=== PATIENT | male | born 2000 | race Caucasian/White ===

== ENCOUNTER 2024-02-19 15:58 | Emergency (ER) | payer BC, SELFPAY ==
[2024-02-19 15:58] VITALS: BP 148/92; PULSE 102; RESP 20; TEMP 36.8; O2SAT 97; BMI 21.6
--- NOTE | 2024-02-19 16:01 | ECG_ITS ---
APPROVED REPORT Exam: Resting ECG HR:100 bpm ECG Measurements Heart Rate 100 AXES KS 129 P 63 QRSd 91 QRS 81 QT 315 T 57 QTc 372 Conclusion SINUS TACHYCARDIA Electronically signed by : MARKIE DE LUNA, 02/19/2024 22:35:16
[2024-02-19 16:05] VITALS: BP 148/92; PULSE 88; O2SAT 96
--- NOTE | 2024-02-19 16:13 | XR_ITS ---
PROCEDURE INFORMATION: Exam: XR Right Shoulder Exam date and time: 02/19/2024 4:47 PM Age: 23 years old Clinical indication: Injury or trauma; Fall; Blunt trauma (contusions or hematomas); Shoulder; Right; Additional info: Fall, R shoulder pain TECHNIQUE: Imaging protocol: Radiologic exam of the right shoulder. Views: 2 or more views. COMPARISON: CT CERVICAL SPINE WO CON 02/19/2024 4:39 PM FINDINGS: Bones/joints: Normal. No acute fracture identified. Soft tissues: Normal. IMPRESSION: No acute findings.
--- NOTE | 2024-02-19 16:13 | CT_ITS ---
PROCEDURE INFORMATION: Exam: CT Cervical Spine Without Contrast Exam date and time: 02/19/2024 4:39 PM Age: 23 years old Clinical indication: Injury or trauma; Fall; Blunt trauma; Additional info: Fall, on eliquis TECHNIQUE: Imaging protocol: Computed tomography of the cervical spine without contrast. Radiation optimization: All CT scans at this facility use at least one of these dose optimization techniques: automated exposure control; mA and/or kV adjustment per patient size (includes targeted exams where dose is matched to clinical indication); or iterative reconstruction. COMPARISON: CT HEAD/BRAIN WO CON 02/19/2024 4:37 PM FINDINGS: Bones: No acute fracture. Normal alignment. No significant disc bulge or herniation. No severe spinal canal stenosis. No significant neural foraminal narrowing. Old ununited avulsion fracture off of the tip of the T1 noted. Lungs: Lung apices are normal. Soft tissues: Unremarkable. IMPRESSION: No acute findings.
--- NOTE | 2024-02-19 16:13 | XR_ITS ---
PROCEDURE INFORMATION: Exam: XR Right Hip Exam date and time: 02/19/2024 4:45 PM Age: 23 years old Clinical indication: Injury or trauma; Fall; Blunt trauma (contusions or hematomas); Right; Hip; Additional info: Fall, R hip and pelvis pain TECHNIQUE: Imaging protocol: Radiologic exam of the right hip. Views: 2 or 3 views hip with pelvis when performed. COMPARISON: CT LUMBAR SPINE WO CON 02/19/2024 4:45 PM FINDINGS: Bones/joints: Unremarkable. No acute fracture. Soft tissues: Unremarkable. IMPRESSION: No acute findings.
--- NOTE | 2024-02-19 16:13 | XR_ITS ---
PROCEDURE INFORMATION: Exam: XR Right Humerus Exam date and time: 02/19/2024 4:48 PM Age: 23 years old Clinical indication: Injury or trauma; Fall; Blunt trauma (contusions or hematomas); Arm, upper; Right; Additional info: Right humerus pain after fall TECHNIQUE: Imaging protocol: Radiologic exam of the right humerus. Views: 2 or more views. COMPARISON: CR Shoulder R 02/19/2024 4:47 PM FINDINGS: Bones/joints: Normal. No acute fracture identified. Soft tissues: Normal. IMPRESSION: No acute findings.
--- NOTE | 2024-02-19 16:13 | XR_ITS ---
PROCEDURE INFORMATION: Exam: XR Right Elbow Exam date and time: 02/19/2024 4:49 PM Age: 23 years old Clinical indication: Injury or trauma; Fall; Blunt trauma (contusions or hematomas); Elbow; Right; Additional info: Fall, right humerus pain TECHNIQUE: Imaging protocol: Radiologic exam of the right elbow. Views: 3 or more views. COMPARISON: CR Humerus R 02/19/2024 4:48 PM FINDINGS: Bones/joints: Normal. No acute fracture identified. Soft tissues: Normal. IMPRESSION: No acute findings.
--- NOTE | 2024-02-19 16:13 | CT_ITS ---
PROCEDURE INFORMATION: Exam: CT Head Without Contrast Exam date and time: 02/19/2024 4:37 PM Age: 23 years old Clinical indication: Injury or trauma; Fall; Blunt trauma (contusions or hematomas); Additional info: Fall on eliquis TECHNIQUE: Imaging protocol: Computed tomography of the head without contrast. Radiation optimization: All CT scans at this facility use at least one of these dose optimization techniques: automated exposure control; mA and/or kV adjustment per patient size (includes targeted exams where dose is matched to clinical indication); or iterative reconstruction. COMPARISON: No relevant prior studies available. FINDINGS: Brain: Normal. No hemorrhage. Unremarkable white matter. No mass effect. Cerebral ventricles: No ventriculomegaly. Paranasal sinuses: Visualized sinuses are unremarkable. No fluid levels. Mastoid air cells: Visualized mastoid air cells are well aerated. Bones: Unremarkable. No acute fracture. Soft tissues: Unremarkable. IMPRESSION: No acute intracranial abnormality.
--- NOTE | 2024-02-19 16:16 | CT_ITS ---
PROCEDURE INFORMATION: Exam: CTA Chest With Contrast Exam date and time: 02/19/2024 4:49 PM Age: 23 years old Clinical indication: Injury or trauma; Fall; Blunt trauma (contusions or hematomas); Additional info: Fall 30 feet, substernal and R chest wall pain TECHNIQUE: Imaging protocol: Computed tomographic angiography of the chest with contrast. Exam focused on the arteries. 3D rendering (Not supervised by radiologist): MIP and/or 3D reconstructed images were created by the technologist. Radiation optimization: All CT scans at this facility use at least one of these dose optimization techniques: automated exposure control; mA and/or kV adjustment per patient size (includes targeted exams where dose is matched to clinical indication); or iterative reconstruction. Contrast material: ISOVUE; Contrast volume: 100 ml; Contrast route: INTRAVENOUS (IV); COMPARISON: CT ANGIO ABDOMEN PELVIS 02/19/2024 4:49 PM FINDINGS: Pulmonary arteries: Normal. No pulmonary emboli. Aorta: Unremarkable. No aortic aneurysm. No aortic dissection. Lungs: Unremarkable. No consolidation. No masses. Pleural spaces: Unremarkable. No pneumothorax. No pleural effusion. Heart: Unremarkable. No cardiomegaly. No pericardial effusion. Lymph nodes: Unremarkable. No enlarged lymph nodes. Bones/joints: Unremarkable. No acute fracture. Soft tissues: Unremarkable. IMPRESSION: No acute findings.
--- NOTE | 2024-02-19 16:16 | XR_ITS ---
PROCEDURE INFORMATION: Exam: XR Right Forearm Exam date and time: 02/19/2024 4:50 PM Age: 23 years old Clinical indication: Injury or trauma; Fall; Blunt trauma (contusions or hematomas); Arm, lower; Right; Additional info: Fall, R forearm pain TECHNIQUE: Imaging protocol: Radiologic exam of the right forearm. Views: 2 views. COMPARISON: CR Elbow R 02/19/2024 4:49 PM FINDINGS: Bones/joints: Normal. No acute fracture identified. Soft tissues: Normal. IMPRESSION: No acute findings.
--- NOTE | 2024-02-19 16:16 | CT_ITS ---
PROCEDURE INFORMATION: Exam: CTA Abdomen and Pelvis With Contrast Exam date and time: 02/19/2024 4:49 PM Age: 23 years old Clinical indication: Injury or trauma; Fall; Blunt trauma; Pelvic area; Right; Additional info: Fall 30 feet, substernal and R chest wall pain TECHNIQUE: Imaging protocol: Computed tomographic angiography of the abdomen and pelvis with contrast. Exam focused on the arteries. 3D rendering (Not supervised by radiologist): MIP and/or 3D reconstructed images were created by the technologist. Radiation optimization: All CT scans at this facility use at least one of these dose optimization techniques: automated exposure control; mA and/or kV adjustment per patient size (includes targeted exams where dose is matched to clinical indication); or iterative reconstruction. Contrast material: ISOVUE; Contrast volume: 100 ml; Contrast route: INTRAVENOUS (IV); COMPARISON: CR Hip R 02/19/2024 4:45 PM FINDINGS: Esophagus: Incidental fairly diffuse mild esophageal wall thickening suggesting possible esophagitis. Aorta: No aortic aneurysm. No aortic dissection. Celiac trunk and mesenteric arteries: No occlusion or significant stenosis. Renal arteries: No occlusion or significant stenosis. Right iliac arteries: No occlusion or significant stenosis. Left iliac arteries: No occlusion or significant stenosis. Liver: No mass. Gallbladder and biliary ducts: Unremarkable. No calcified stones. No ductal dilation. Pancreas: Unremarkable. No mass. No ductal dilation. Spleen: Unremarkable. No splenomegaly. Adrenal glands: Unremarkable. No mass. Kidneys and ureters: Unremarkable. No solid mass. No hydronephrosis. Stomach and bowel: Unremarkable. No obstruction. No mucosal thickening. Appendix: No evidence of appendicitis. Intraperitoneal space: Unremarkable. No free air. No significant fluid collection. Lymph nodes: Unremarkable. No enlarged lymph nodes. Urinary bladder: Unremarkable. No mass. Reproductive: Unremarkable as visualized. Bones/joints: No acute fracture. Soft tissues: Unremarkable. IMPRESSION: 1. No acute abnormality of the abdomen and pelvis. 2. Diffuse esophageal wall thickening suggesting potential esophagitis.
--- NOTE | 2024-02-19 16:16 | CT_ITS ---
PROCEDURE INFORMATION: Exam: CT Lumbar Spine Without Contrast Exam date and time: 02/19/2024 4:45 PM Age: 23 years old Clinical indication: Injury or trauma; Fall; Blunt trauma (contusions or hematomas); Additional info: Fall 30 feet, left midline and paraspinal pain TECHNIQUE: Imaging protocol: Computed tomography of the lumbar spine without contrast. Radiation optimization: All CT scans at this facility use at least one of these dose optimization techniques: automated exposure control; mA and/or kV adjustment per patient size (includes targeted exams where dose is matched to clinical indication); or iterative reconstruction. COMPARISON: CT THORACIC SPINE WO CON 02/19/2024 4:41 PM FINDINGS: Bones/joints: No acute fracture. Normal alignment. No significant disc bulge or herniation. No severe spinal canal stenosis. No significant neural foraminal narrowing. Soft tissues: Unremarkable. IMPRESSION: No acute findings.
--- NOTE | 2024-02-19 16:16 | CT_ITS ---
PROCEDURE INFORMATION: Exam: CT Thoracic Spine Without Contrast Exam date and time: 02/19/2024 4:41 PM Age: 23 years old Clinical indication: Injury or trauma; Fall; Blunt trauma (contusions or hematomas); Additional info: Fall 30 feet, substernal and R chest wall pain TECHNIQUE: Imaging protocol: Computed tomography of the thoracic spine without contrast. Radiation optimization: All CT scans at this facility use at least one of these dose optimization techniques: automated exposure control; mA and/or kV adjustment per patient size (includes targeted exams where dose is matched to clinical indication); or iterative reconstruction. COMPARISON: CT CERVICAL SPINE WO CON 02/19/2024 4:39 PM FINDINGS: Bones/joints: No acute fracture. Normal alignment. No significant disc bulge or herniation. No severe spinal canal stenosis. No significant neural foraminal narrowing. Old ununited avulsion fractures off of the tips of the T1 and T2 spinous processes. Soft tissues: Unremarkable. IMPRESSION: 1. No acute abnormality. 2. Old ununited T1 and T2 spinous process fractures.
[2024-02-19] MEDS: ONDANSETRON 4MG/2ML VIAL 4 MG IV (16:21)
[2024-02-19] MEDS: ACETAMINOPHEN 1,000MG/100ML VIAL 1000 MG IV (16:21)
[2024-02-19] MEDS: KETOROLAC 30MG/ML VIAL 15 MG IV (16:22)
[2024-02-19] MEDS: FENTANYL 100MCG/2ML VIAL 50 MCG IV (16:22)
--- NOTE | 2024-02-19 16:24 | HMH.EDGENADL ---
Discharge Plan Disposition Patient Disposition: Home, Self-Care Prescriptions Prescriptions: New methocarbamol 750 mg tablet 1,500 mg PO TID 5 Days Qty: 30 0RF Referrals Follow up/Referrals: Provider,Referral, MD [Primary Care Provider] - See instructions Activity Restrictions/Add. Instructions Additional Instructions/Restrictions: Call your family doctor to establish care for this visit to the emergency department and schedule follow-up within 48 hours to ensure improvement. If you have any worsening of your condition or any other concerning signs or symptoms, return to the emergency department or your primary care doctor for further evaluation. Take Tylenol 1000 mg every 6 hours (4 times daily) and ibuprofen 400 mg every 6 hours (4 times daily) as needed with food and water to prevent GI upset and kidney damage. Robaxin sent to pharmacy. Robaxin can cause you to feel drowsy. Do not drive, operate heavy machinery, or engage in any activity that may make you tired, fall asleep, and because harm to yourself or others while taking this medication. Clinical Impressions Clinical Impression: Arm pain, right, Right-sided chest wall pain, Acute pain of right hip, Acute lumbosacral myofascial strain, Fall, Neurapraxia of right upper extremity Discharge ED Provider: Cristino Carey General Adult HPI General Chief complaint: Fall Stated complaint: Chest Pain Time Seen by Provider: 02/19/24 16:13 Mode of Arrival: Ambulatory Source of Information: Patient and Spouse Limitations: No Limitations Description of Symptoms (Recalled from ER Triage Doc. by RN): pt fell 30-50 feet from antenna tower last night around 0, per pt landed on feet then to knee and mainly hurts right shoulder but today pain has gradually gotten wrose and he hurts all over. pt walked into ER and got self into bed, ER staff applied c colloar upon triage and ER MD deemed patient not a trauma alert. pt is nervous and anxious upon triage and vitals reflect that but otherwise WNL History of Present Illness HPI narrative: Please note that above description of symptoms, in this electronic medical record under categorization of recalled from ER triage doctor by RN are reflective of an initial nursing assessment, however, is not reflective of my full history and physical exam that was personally taken and clarified. Consequentially, this preceding description of symptoms, which may include the patient's categorized chief complaint in the EMR, do not reflect my personal clinical impression, and the ultimate description of history of present illness and patient stated complaints should be deferred to this section of the note. Unless stated otherwise or congruent with this section of the note, additional signs, symptoms, or incongruence should be interpreted as inaccurate with my clinical impression. Related Data Previous Rx's Medication Instructions Recorded methocarbamol 750 mg tablet 1,500 mg (2 x 750 mg) PO TID 5 02/19/24 days #30 tabs Allergies Allergy/AdvReac Type Severity Reaction Status Date / Time No Known Allergies Allergy Verified 02/19/24 16:17 [facility] Disclaimer: The information contained in this section may have been updated after the patient was seen, as this information can be updated by other users. Social History Smoking Status: Never smoker alcohol intake: never current occupational status: employed Travel in the last 8 weeks: None ROS Obtained: Yes All systems reviewed & no additional complaints except as documented Physical Exam General General appearance: alert and in distress (Mild distress secondary to pain) Head Head exam: atraumatic and normocephalic Eye Eye exam: Present normal appearance, PERRL and EOMI ENT ENT exam: Present normal exam and normal oropharynx Neck Neck exam: Present normal inspection, full ROM, trachea midline and tenderness (Paraspinal muscles on the right. No midline spinal tenderness. C-collar placed given complaint of pain radiating down right arm) Chest Chest inspection: Present symmetric chest wall rise and tenderness (Right inferolateral chest wall pain) Respiratory Respiratory exam: Present normal lung sounds bilaterally; Absent respiratory distress, wheezes, stridor, accessory muscle use or prolonged expiratory phase Cardiovascular Cardiovascular exam: Present normal rhythm, tachycardia and other (Pulses equal symmetric in upper and lower extremities) Abdominal Exam Abdominal exam: Present soft and tenderness; Absent distention or pulsatile mass Abdominal tenderness: Present RUQ and mild Extremities Exam Extremities exam: Present tenderness (Supraspinatus tenderness causing radiation through right upper extremity. Tenderness at right shoulder and right humerus. No outward signs of injury or deformity); Absent edema Back Exam Back exam: Present paraspinal tenderness (Left-sided lumbar) and sciatic notch tenderness (L); Absent sciatic notch tenderness (R) Neurological Exam Neurological exam: Present alert, oriented X3, CN II-XII intact, normal gait and motor sensory deficit (Has subjective sensory deficit C6 distribution right upper extremity, described as less sensation, as well as numb ) Skin Skin exam: Present warm and dry; Absent diaphoresis or erythema Medical Decision Making Medical Records Medical records reviewed: Yes I reviewed the patient's medical records. Gigi Inquiry Pt receiving controlled substance: No Gigi was queried for this patient: No Vital Signs: 02/19/24 15:58 02/19/24 16:05 02/19/24 17:30 Temperature 98.2 F Temperature Source Oral Pulse Rate 88 89 Pulse Rate [Right Radial] 102 H Respiratory Rate 20 16 Blood Pressure 148/92 H 136/80 Blood Pressure [Right Arm] 148/92 H Blood Pressure Mean [Right Arm] 110 02 Sat by Pulse Oximetry 97 96 95 Oxygen Delivery Method Room Air Room Air Room Air Orders (Tests/Meds): ED MEDICATIONS Discontinued Medications Generic Name Dose Route Start Last Admin Trade Name Freq PRN Reason Stop Dose Admin Acetaminophen 1,000 mg 02/19/24 16:13 02/19/24 16:21 Acetaminophen 1,000mg/100ml Vial IV 02/19/24 16:14 1,000 mg ONCE ONE Administration Fentanyl Citrate 50 mcg 02/19/24 16:13 02/19/24 16:22 Fentanyl 100mcg/2ml Vial IV 02/19/24 16:14 50 mcg ONCE ONE Administration Iopamidol 100 ml 02/19/24 16:48 02/19/24 16:50 Iopamidol-370 (76%);100ml Bottle IV 02/19/24 16:49 100 ml ONCE ONE Administration Ketorolac Tromethamine 15 mg 02/19/24 16:13 02/19/24 16:22 Ketorolac 30mg/Ml Vial IV 02/19/24 16:14 15 mg ONCE ONE Administration Methocarbamol 1,500 mg 02/19/24 17:13 02/19/24 17:27 Methocarbamol 500mg Tablet PO 02/19/24 17:14 1,500 mg ONCE ONE Administration Ondansetron HCl 4 mg 02/19/24 16:17 02/19/24 16:21 Ondansetron 4mg/2ml Vial IV 02/19/24 16:18 4 mg ONCE ONE Administration Sodium Chloride 50 ml 02/19/24 16:48 02/19/24 16:50 0.9 % Sodium Chloride 50 Ml Vial IV 02/19/24 16:49 50 ml ONCE ONE Administration Sodium Chloride 10 ml 02/19/24 16:48 02/19/24 16:50 Sodium Chloride 0.9% 10ml Syr (Rad Only) IV 02/19/24 16:49 10 ml ONCE ONE Administration ORDERS Category Date Time Status CT angio abdomen pelvis Stat Cat Scan 02/19/24 16:[address] angio chest - dissection Stat Cat Scan 02/19/24 16:[address] cervical spine wo con Stat Cat Scan 02/19/24 16:[address] head/brain wo con Stat Cat Scan 02/19/24 16:[address] lumbar spine wo con Stat Cat Scan 02/19/24 16:[address] thoracic spine wo con Stat Cat Scan 02/19/24 16:16 Completed Elbow XR right minimum 3 views [XR elbow RT min 3V] Exams 02/19/24 16:13 Completed Stat Forearm XR right 2 views [XR forearm RT 2V] Stat Exams 02/19/24 16:16 Completed Hip XR right minimum 2 views [XR hip RT 2-3V w/pelvis] Exams 02/19/24 16:13 Completed Stat Humerus XR right [XR humerus RT] Stat Exams 02/19/24 16:13 Completed Shoulder XR right miminum 2 views [XR shoulder RT min Exams 02/19/24 16:13 Completed 2V] Stat Medical Decision Narrative: This is a 23-year-old male no relevant medical history presenting with polytrauma attic complaints. Patient states that he was on an antenna tower yesterday, 02/17 around 9 PM when he fell about 30 feet and landed on grass. States that he tried to grab onto rungs of the antenna tower on the way down, feels he slowed himself down, but still hit the ground pretty hard. Landed directly on his feet, then crumpled onto his right side and rolled over his knee, hip, hit pretty hard on his right shoulder. Denies any head trauma, but is having pain down his right upper extremity and right lower extremity. States he had bad experience at outside ED, so did not want to go to the emergency department until today he was having severe pain. Pain is most severe in his right shoulder, lower lumbar spine. Denies bowel or bladder dysfunction, numbness, tingling, weakness in the legs, saddle anesthesia. States that the pain in his right upper extremity feels like it radiates from his neck/shoulder down into the outer aspect of his hand and wrist. No weakness here either. Has tried taking Tylenol, Motrin, drinking whiskey for pain control. History was obtained via conversation with patient and significant other. On arrival, patient hemodynamically stable, alert, oriented x4, appropriate, GCS 15, moving all extremities spontaneously, pupils equal and reactive to light. Full physical exam performed and significant for patient has paraspinal muscular tenderness of the neck and rotator cuff muscular tenderness without obvious crepitus on exam. Full range of motion of shoulder, right upper extremity, but does have tenderness scapula, right shoulder, right humerus. Neurovascular intact right upper extremity. Bilateral breath sounds, normal cardiac exam. Chest wall tenderness and inferolateral tenderness without outward signs of bruising. Abdomen soft, tender in right upper quadrant, but no significant tenderness. No guarding or rigidity. Patient also has bruising about right hip laterally, but no pain with range of motion. Neurovascular intact lower extremities. Neurologically intact and symmetric diffusely. Differential includes critical C-spine fracture, critical lumbar spine fracture, scapular fracture, shoulder fracture, humerus fracture, pneumothorax, blunt cardiac injury, blunt thoracic aortic injury, blunt pulmonary injury, splenic laceration, among others. Patient placed on continuous post splitter with initial blood pressure 148/92, pulse rate 102. Also placed on continuous pulse oximetry with initial O2 sat 97% on room air. Independent interpretation of EKG shows sinus tachycardia [address] or T wave changes concerning for acute ischemia. Patient's AL interval 129, QRS 91, QTc 372. [place] normal.. Patient was given fentanyl, Zofran, Toradol, acetaminophen for symptomatic management and correction of underlying abnormalities. Workup independently interpreted and significant for no acute bony abnormality or injury of imaged right upper extremity on independent rotation. CT head and C-spine negative for any acute intracranial or significant cervical spine injury on independent interpretation. Rest of trauma scans also negative. See radiology read for full review of final results. Hematologic workup including coags, CBC, chemistry, etc. considered, but given length of time since trauma, very well-appearing patient who is hemodynamically stable, very well-appearing, no underlying comorbidities, deemed appropriate at this time. On reevaluation, patient feeling much better, Robaxin was added on given tightness in the neck. Cervical collar cleared. Given patient presentation, workup, history, this most likely represents right upper extremity pain, neck and back pain after fall. I feel it is unlikely that patient has critical or clinically significant cervical spine injury given the radiation down his right arm. I feel this is most likely related to a neuropraxia versus disc herniation causing irritation in the C6 distribution. No weakness and significant improvement with conservative care. Because patient at baseline without signs or symptoms of clinical decompensation, deemed appropriate for discharge. Results were relayed to patient who voiced understanding and were agreeable to outpatient management and follow up. I discussed my clinical impression with patient and answered all questions. At this time, the evidence for any other entities in the differential is insufficient to warrant any further testing or ED observation. This was explained as well. Advisory was given that persistent or worsening symptoms require further evaluation. I confirmed the understanding of this discussion. Freight Flow Sales Leader disclaimer Much of this encounter note is an electronic aggregate conveyor operator spoken language to printed text. Electronic aggregate conveyor operator of the spoken language may permit errors. Although I have reviewed the note, some errors may still exist. Critical Care Critical Care Time Critical Care Time: No
[2024-02-19] MEDS: 0.9 % SODIUM CHLORIDE 50 ML VIAL IV (16:50)
[2024-02-19] MEDS: IOPAMIDOL-370 (76%);100ML BOTTLE 100 ML IV (16:50)
[2024-02-19] MEDS: SODIUM CHLORIDE 0.9% 10ML SYR (RAD ONLY) 10 ML IV (16:50)
[2024-02-19] MEDS: METHOCARBAMOL 500MG TABLET 1500 MG PO (17:27)
[2024-02-19 17:30] VITALS: BP 136/80; PULSE 89; RESP 16; O2SAT 95
--- NOTE | 2024-02-19 17:33 | PC.NURSE ---
warm blanket given and tucked in under pt feet no other needs at this time call light in reach
[2024-02-19 17:46] VITALS: BP 136/80; PULSE 101; RESP 18; TEMP 36.7; O2SAT 96
== END 2024-02-19 17:51 | disposition home or self-care (01) ==
PROVIDERS: Emergency Provider Emergency Medicine
DX: R07.89 Other chest pain (principal); S44.91XA Injury of unspecified nerve at shoulder and upper arm level, right arm, initial encounter; S39.012A Strain of muscle, fascia and tendon of lower back, initial encounter; M54.2 Cervicalgia; M25.511 Pain in right shoulder; M79.601 Pain in right arm; R00.0 Tachycardia, unspecified; W17.89XA Other fall from one level to another, initial encounter
CPT/HCPCS: 70450; 71275; 72125; 72128; 72131; 73030; 73060; 73080; 73090; 73502; 74174; 93005; 96374; 96375; 99285; J0131; J1885; J2405; J3010; Q9967

== ENCOUNTER 2024-03-29 20:12 | Emergency (ER) | payer BC, SELFPAY ==
--- NOTE | 2024-03-29 | ECG_ITS ---
APPROVED REPORT Exam: Resting ECG HR:107 bpm ECG Measurements Heart Rate 107 AXES CA 126 P 69 QRSd 95 QRS 71 QT 296 T 40 QTc 359 Conclusion Sinus tachycardia Incomplete right bundle branch block Repolarization abnormality precordial lead V2 Electronically signed by : MARKIE DE LUNA, 03/29/2024 23:44:47
--- NOTE | 2024-03-29 | ECG_ITS ---
APPROVED REPORT Exam: Resting ECG HR:82 bpm ECG Measurements Heart Rate 82 AXES SD 130 P 55 QRSd 96 QRS 60 QT 336 T 38 QTc 375 Conclusion Sinus rhythm Incomplete right bundle branch block Repolarization abnormality precordial lead V2 with no reciprocal change Electronically signed by : MARKIE DE LUNA, 03/29/2024 23:45:10
[2024-03-29 20:17] VITALS: BP 169/109; PULSE 113; RESP 20; TEMP 37.1; O2SAT 97; BMI 24.1
--- NOTE | 2024-03-29 20:21 | XR_ITS ---
PROCEDURE INFORMATION: Exam: XR Chest Exam date and time: 03/29/2024 8:29 PM Age: 23 years old Clinical indication: Pain; Chest pressure; Additional info: Cp to L shoulder blade, diaphoresis TECHNIQUE: Imaging protocol: Radiologic exam of the chest. Views: 1 view. COMPARISON: CT ANGIO CHEST 02/19/2024 4:49 PM FINDINGS: Lungs: Unremarkable. No consolidation. Pleural spaces: Unremarkable. No pleural effusion. No pneumothorax. Heart/Mediastinum: Unremarkable. No cardiomegaly. Bones/joints: Unremarkable. IMPRESSION: No acute findings.
--- NOTE | 2024-03-29 20:25 | HMH.EDCP ---
Discharge Plan Disposition Patient Disposition: Home, Self-Care Prescriptions Prescriptions: No Action methocarbamol 750 mg tablet 1,500 mg PO TID 5 Days Qty: 30 0RF Referrals Follow up/Referrals: Michael Pryor MD [Staff Physician] - See instructions Provider,MD Yousif [Primary Care Provider] - See instructions Jude Allred MD [Staff Physician] - See instructions Activity Restrictions/Add. Instructions Additional Instructions/Restrictions: Call [facility] electrophysiology department at [phone] to schedule an appointment for abnormal EKG findings concerning for type II Brugada syndrome. Be sure to bring the EKG that was provided today to that appointment. Call your family doctor to establish care for this visit to the emergency department and schedule follow-up within 48 hours to ensure improvement. If you have any worsening of your condition or any other concerning signs or symptoms, return to the emergency department or your primary care doctor for further evaluation. Clinical Impressions Clinical Impression: Chest pain, Abnormal ECG Print Language Print Language: Kazakh Discharge ED Provider: Cristino Carey HPI <Cristino Carey MD - Last Filed: 03/29/24 23:49> General Chief Complaint: Chest Pain Stated Complaint: CHEST PAIN Time Seen by Provider: 03/29/24 20:16 Mode of Arrival: Ambulatory Source of Information: Patient Limitations: No Limitations Description of Symptoms (Recalled from ER Triage Doc. by RN): Pt ambulatory to ED with cc of chest pain and SOA. Pt states the pain radiates down his left arm and into his left shoulder pain. Pt states the pain started 4 hours ago while he was watching a movie. Pt states having an episode of vomitting. Pt denies passing out. Pt states being sweaty and light headed. Pt has a dx of anxiety but states this pain is different. History of Present Illness HPI narrative: Please note that above description of symptoms, in this electronic medical record under categorization of recalled from ER triage doctor by RN are reflective of an initial nursing assessment, however, is not reflective of my full history and physical exam that was personally taken and clarified. Consequentially, this preceding description of symptoms, which may include the patient's categorized chief complaint in the EMR, do not reflect my personal clinical impression, and the ultimate description of history of present illness and patient stated complaints should be deferred to this section of the note. Unless stated otherwise or congruent with this section of the note, additional signs, symptoms, or incongruence should be interpreted as inaccurate with my clinical impression. Related Data Previous Rx's ?Medication ?Instructions ?Recorded methocarbamol 750 mg tablet 1,500 mg (2 x 750 mg) PO TID 5 02/19/24 days #30 tabs Allergies Allergy/AdvReac Type Severity Reaction Status Date / Time No Known Allergies Allergy Verified 02/19/24 16:17 PFS <Cristino Carey MD - Last Filed: 03/29/24 23:49> [facility] Disclaimer: The information contained in this section may have been updated after the patient was seen, as this information can be updated by other users. Social History (Updated 02/19/24 @ 17:42 by Cristino Carey MD) Smoking Status: Never smoker alcohol intake: never current occupational status: employed Travel in the last 8 weeks: None <Cristino Carey MD - Last Filed: 03/29/24 23:49> ROS Obtained: Yes All systems reviewed & no additional complaints except as documented Physical Exam <Cristino Carey MD - Last Filed: 03/29/24 23:49> General General appearance: alert and anxious Neck Neck exam: Present trachea midline Chest Chest inspection: Present normal inspection and symmetric chest wall rise Respiratory Respiratory exam: Present normal lung sounds bilaterally; Absent respiratory distress, wheezes, stridor, accessory muscle use or prolonged expiratory phase
[2024-03-29 20:26] VITALS: PULSE 113
[2024-03-29 20:31] LABS: Basophils # 0.1 K/mm3 (0-0.2); Basophils % 0.6 % (0.1-2.0); Eosinophils # 0.1 K/mm3 (0.0-0.4); Eosinophils % 0.8 % (0.1-12.0); Hematocrit 48.8 % (42.0-52.0); Hemoglobin 15.9 g/dL (14.1-18.0); Lymphocytes # 1.9 K/mm3 (0.7-4.5); Lymphocytes % 20.8 % (10-50); Mean Corpuscular HGB Conc 32.5 g/dL (31.8-35.4); Mean Corpuscular Hemoglobin 30.5 pg (27.0-31.2); Mean Corpuscular Volume 93.8 fl (80-94); Mean Platelet Volume 7.3 fl (7.4-10.4); Monocytes # 0.4 K/mm3 (0.1-1.0); Monocytes % 4.2 % (1.7-9.3); Neutrophils # 6.6 K/mm3 (1.8-7.8); Neutrophils % 73.6 % (37.0-80.0); Platelet Count 234 K/mm3 (142-424); Red Blood Count 5.21 M/mm3 (4.60-6.20); Red Cell Distribution Width 13.4 % (11.5-17.5)
[2024-03-29 20:32] LABS: Albumin Level 4.6 g/dl (3.5-5.0); Chloride 104 mmol/L (98-107); Potassium 3.7 mmoL/L (3.5-5.1); Sodium 138 mmol/L (136-145)
[2024-03-29 20:33] LABS: VBG Base Excess 3.7 mmol/L (-2.4-2.3); VBG Oxygen Saturation 84.6 % (50-70); VBG PCO2 52.1 mmol/L (35-51); VBG PH 7.36 mmol/L (7.31-7.41); VBG PO2 49.5 mmol/L (28-40); VBG Total CO2 30.6 mmol/L (23-27)
[2024-03-29 20:35] LABS: Alanine Aminotransferase 32 U/L (12-78); Albumin/Globulin Ratio 1.6 (1.1-1.8); Alkaline Phosphatase 78 U/L (38-126); Anion Gap 8.7 mEq/L (5-15); Aspartate Amino Transferase 51 U/L (17-59); Bilirubin,Total 0.6 mg/dl (0.2-1.3); Blood Urea Nitrogen 9 mg/dl (9-20); Calcium 8.9 mg/dl (8.4-10.2); Carbon Dioxide 29 mmol/L (22.0-30.0); Creatinine Clearance Estimated 107 mL/min (50-200); Estimated Glomerular Filt Rate 93 ml/min (>60); GFR (African American) 112 ML/MIN (>60); Globulin 2.8 g/dL (1.3-3.2); Glucose 99 mg/dl (74-100); Lipase 94 U/L (23-300); Total Protein,Serum 7.4 g/dl (6.3-8.2)
[2024-03-29 20:36] LABS: Magnesium 1.7 mg/dl (1.6-2.3)
[2024-03-29 20:37] LABS: Activated Partial Thrombo Time 26.5 seconds (22.8-30.6)
--- NOTE | 2024-03-29 20:40 | PC.NURSE ---
Pt refused UA
[2024-03-29 20:43] LABS: D-Dimer 0.27 ug/mL (0.0-0.5)
[2024-03-29 20:45] LABS: NT Pro Brain Natriuretic Pep. < 20.0 pg/mL (0-125)
[2024-03-29 20:49] LABS: Troponin I < 0.01 ng/ml (0.00-0.034)
[2024-03-29 21:06] LABS: Thyroid Stimulating Hormone 1.28 uIU/mL (0.465-4.68)
--- NOTE | 2024-03-29 23:25 | PC.NURSE ---
Pt reported pain Dr Carey aware no new orders at this time
[2024-03-29 23:47] LABS: Troponin I < 0.01 ng/ml (0.00-0.034)
[2024-03-30 00:04] VITALS: BP 152/99; PULSE 54; RESP 18; TEMP 36.5; O2SAT 97
== END 2024-03-30 00:06 | disposition home or self-care (01) ==
PROVIDERS: Emergency Medicine; Emergency Provider Emergency Medicine
DX: R07.9 Chest pain, unspecified (principal); R06.02 Shortness of breath; M79.602 Pain in left arm; M25.512 Pain in left shoulder; R11.10 Vomiting, unspecified; R42 Dizziness and giddiness; R61 Generalized hyperhidrosis; R00.0 Tachycardia, unspecified
CPT/HCPCS: 71045; 80050; 80053; 82803; 83690; 83735; 83880; 84436; 84443; 84484; 85025; 85378; 85730; 93005; 96361; 96374; 96375; 99285; J1885; J2270; J7120

== ENCOUNTER 2024-04-23 00:08 | Emergency (ER) | payer BC, SELFPAY ==
[2024-04-23 00:09] VITALS: BP 136/86; PULSE 95; RESP 16; TEMP 36.8; O2SAT 99; BMI 23.3
--- NOTE | 2024-04-23 00:09 | ECG_ITS ---
APPROVED REPORT Exam: Resting ECG HR:101 bpm ECG Measurements Heart Rate 101 AXES CO 128 P 64 QRSd 98 QRS 80 QT 307 T 50 QTc 365 Conclusion SINUS TACHYCARDIA POSSIBLE RIGHT VENTRICULAR CONDUCTION DELAY [RSR (QR) IN V1/V2] ABNORMAL RHYTHM ECG UNCONFIRMED REPORT Electronically signed by : VISHNU VARGAS, 04/25/2024 06:37:08
--- NOTE | 2024-04-23 00:15 | ED_ITS ---
Discharge Plan Disposition Patient Disposition: Home, Self-Care Prescriptions Prescriptions: No Action methocarbamol 750 mg tablet 1,500 mg PO TID 5 Days Qty: 30 0RF Activity Restrictions/Add. Instructions Additional Instructions/Restrictions: Please take Tylenol and ibuprofen as needed for symptoms. Please follow-up with your primary care provider. Please return to the emergency department if you develop any new or worsening symptoms or become concerned for your health. Clinical Impressions Clinical Impression: Flu-like symptoms Print Language Print Language: Pashto Discharge ED Provider: Yury Doherty General Adult HPI General Chief complaint: PAIN Stated complaint: chest pain Time Seen by Provider: 04/23/24 00:10 History of Present Illness HPI narrative: 24-year-old male without significant past medical history presents for flulike symptoms. He reports that he started having bodyaches this morning. He has had a sore throat for the last couple of days with intermittent nasal congestion. Today he started nonproductive cough and some shortness of breath/chest discomfort. He took some NSAIDs at home without significant improvement. Related Data Previous Rx's ?Medication ?Instructions ?Recorded methocarbamol 750 mg tablet 1,500 mg (2 x 750 mg) PO TID 5 02/19/24 days #30 tabs Allergies Allergy/AdvReac Type Severity Reaction Status Date / Time No Known Allergies Allergy Verified 02/19/24 16:17 [facility] Disclaimer: The information contained in this section may have been updated after the patient was seen, as this information can be updated by other users. Social History (Updated 02/19/24 @ 17:42 by Cristino Carey MD) Smoking Status: Unknown if ever smoked alcohol intake: never current occupational status: employed Travel in the last 8 weeks: None ROS Obtained: Yes All systems reviewed & no additional complaints except as documented Physical Exam General General appearance: alert and in no apparent distress Head Head exam: atraumatic and normocephalic Eye Eye exam: Present normal appearance, PERRL and EOMI ENT ENT exam: Present normal external ear exam and other (Cobblestoning of the posterior oropharynx) Neck Neck exam: Present normal inspection, full ROM and lymphadenopathy (Mild anterior cervical) Chest Chest inspection: Present normal inspection and symmetric chest wall rise; Absent tenderness Respiratory Respiratory exam: Present normal lung sounds bilaterally; Absent respiratory distress Cardiovascular Cardiovascular exam: Present regular rate and normal rhythm Abdominal Exam Abdominal exam: Present soft; Absent distention, tenderness or guarding Extremities Exam Extremities exam: Present normal inspection; Absent edema or joint swelling Back Exam Back exam: Present normal inspection; Absent tenderness Neurological Exam Neurological exam: Present alert and oriented X3; Absent motor sensory deficit Psychiatric Psychiatric exam: Present normal affect and normal mood Skin Skin exam: Present warm, dry and normal color Lymphatic Lymphatic Findings: no adenopathy Medical Decision Making Medical Records Medical records reviewed: Yes I reviewed the patient's medical records. Screening: Per USPSTF and CDC recommendations, given the prevalence of disease in our region, it is our hospital?s policy to screen for HIV and viral Hepatitis for all patients aged 18 and over and those with ongoing risk factors. Gigi Inquiry Pt receiving controlled substance: No Gigi was queried for this patient: No Vital Signs: 04/23/24 00:09 04/23/24 00:30 Temperature 98.3 F Temperature Source Oral Pulse Rate 93 H Pulse Rate [Left] 95 H Respiratory Rate 16 Blood Pressure 133/78 Blood Pressure [Right Arm] 136/86 Blood Pressure Mean [Right Arm] 102 02 Sat by Pulse Oximetry 99 94 L Oxygen Delivery Method Room Air Lab Data Lab results reviewed: Yes I reviewed the patient's lab results. Lab Results 04/23/24 00:19: Group A Strep Rapid Negative Orders (Tests/Meds): ED MEDICATIONS Discontinued Medications Generic Name Dose Route Start Last Admin Trade Name Simon PRN Reason Stop Dose Admin Acetaminophen 1,000 mg 04/23/24 00:15 04/23/24 00:22 Acetaminophen 500mg Tab PO 04/23/24 00:16 1,000 mg ONCE ONE Administration ORDERS Category Date Time Status Rapid PCR Covid and Flu A/B Stat Lab 04/23/24 00:19 Received Strep Scrn Group A (Rapid) Stat Lab 04/23/24 00:19 Completed Strep Screen Confirmation Stat Micro 04/23/24 00:19 Received EKG Request [ECG Request] Stat Y 04/23/24 00:16 Ordered Medical Decision Narrative: 24-year-old male without significant past medical history presents for 1 day of bodyaches, nonproductive cough, sore throat, intermittent chest pain and shortness of breath. History was obtained via interactive discussion with patient. On arrival, patient is [afebrile, hemodynamically stable, satting appropriately, alert, oriented x4, GCS 15], moving all extremities spontaneously. Full physical exam performed and significant for cobblestoning in the throat, clear lungs bilaterally, otherwise benign exam. Differential includes but is not limited to COVID, flu, viral syndrome, strep throat, pneumonia. Patient was given Tylenol for symptomatic management and correction of underlying abnormalities. Workup initiated including COVID flu swab, strep swab, EKG. Blood work, chest x-ray, full viral panel were considered but deemed unnecessary given history and exam. On re-evaluation, patient [remains afebrile, HD stable.] Laboratory workup independently interpreted by me and significant for negative COVID swab. EKG independently interpreted by me and significant for repolarization abnormality in V2 which appears consistent from prior. Patient is aware that he he has EKG findings which could be concerning for Brugada. He is in the process of following up with cardiology. Given patient history, exam and workup, patient's presentation most likely represents viral syndrome. These findings were communicated with patient. He was discharged with COVID flu swab pending, we will call if it is positive.. Procedures Risk/Benefits of Procedure(s) Were Explained: Yes Critical Care Critical Care Time Critical Care Time: No
[2024-04-23 00:22] LABS: Coronavirus 19, PCR Not Detected (NotDetected); Influenza A, PCR Not Detected (NotDetected); Influenza B, PCR Not Detected (NotDetected)
[2024-04-23] MEDS: ACETAMINOPHEN 500MG TAB 1000 MG PO (00:22)
[2024-04-23 00:30] VITALS: BP 133/78; PULSE 93; O2SAT 94
[2024-04-23 00:30] LABS: Strep Scrn Group A (Rapid) Negative (Negative)
[2024-04-23 00:44] VITALS: BP 132/72; PULSE 94; RESP 18; TEMP 36.6
== END 2024-04-23 00:45 | disposition home or self-care (01) ==
PROVIDERS: Emergency Provider Emergency Medicine
DX: R05.9 Cough, unspecified (principal); R06.02 Shortness of breath; R07.0 Pain in throat; B34.9 Viral infection, unspecified
CPT/HCPCS: 87430; 87636; 93005; 99283

== ENCOUNTER 2024-06-08 13:07 | Emergency (ER) | payer BC, SELFPAY ==
--- NOTE | 2024-06-08 13:29 | EXP.UTC ---
Discharge Plan Disposition Patient Disposition: Home, Self-Care Condition: Good Prescriptions Prescriptions: New qttambsbkwdffaq-wpzroibot-AV [Bromfed DM] 2-30-10 mg/5 mL Syrup 5 ml PO Q6H PRN (Reason: Cough) Qty: 240 0RF ondansetron 4 mg Tablet,Disintegrating 4 mg PO Q8H PRN (Reason: Nausea) Qty: 12 0RF No Action methocarbamol 750 mg tablet 1,500 mg PO TID 5 Days Qty: 30 0RF alprazolam 0.5 mg tablet 0.5 mg PO DIRECTED Patient Comments: TAKE 1 BY MOUTH THREE TIMES DAILY FOR ANXIETY ATTACKS amitriptyline 100 mg tablet 100 mg PO DIRECTED Referrals Follow up/Referrals: Jay Paulino MD [Primary Care Provider] - See instructions Activity Restrictions/Add. Instructions Additional Instructions/Restrictions: Drink plenty of fluids. Take tylenol or ibuprofen for pain or fever. Follow up with your regular doctor. GO TO THE ER FOR ANY WORSENING SYMPTOMS Clinical Impressions Clinical Impression: Acute viral syndrome, Exposure to 2019 novel coronavirus Instructions Patient Instructions: Coronavirus Disease 2019, Preventing the Spread of Coronavirus Discharge Instructions Print Language Print Language: Filipino Discharge ED Provider: Naun Kendrick [facility] General Stated complaint: exp to covid Time Seen by Provider: 06/08/24 13:29 Related Data Home Medications ?Medication ?Instructions ?Recorded ?Confirmed alprazolam 0.5 mg tablet 0.5 mg PO DIRECTED 06/08/24 06/08/24 amitriptyline 100 mg tablet 100 mg PO DIRECTED 06/08/24 06/08/24 Previous Rx's ?Medication ?Instructions ?Recorded methocarbamol 750 mg tablet 1,500 mg (2 x 750 mg) PO TID 5 02/19/24 days #30 tabs ysbjzbfqufejjqe-sfwzoifkvllefzi-WN 5 ml PO Q6H PRN Cough #240 mL 06/08/24 2 mg-30 mg-10 mg/5 mL oral syrup (Bromfed DM) ondansetron 4 mg disintegrating 4 mg PO Q8H PRN Nausea #12 tabs 06/08/24 tablet Allergies Allergy/AdvReac Type Severity Reaction Status Date / Time No Known Allergies Allergy Verified 02/19/24 16:17 [facility] Disclaimer: The information contained in this section may have been updated after the patient was seen, as this information can be updated by other users. Social History (Updated 02/19/24 @ 17:42 by Cristino Carey MD) Smoking Status: Unknown if ever smoked alcohol intake: never current occupational status: employed Travel in the last 8 weeks: None ROS Obtained: Yes All systems reviewed & no additional complaints except as documented Constitutional Constitutional: Reports chills and Reports fever(s) Eyes Eyes: Denies eye discharge ENT Ears, Nose, Mouth, and Throat: Reports as per HPI Cardiovascular Cardiovascular: Denies chest pain Respiratory Respiratory: Denies chest congestion and Reports cough Gastrointestinal Gastrointestingal: Reports nausea; Denies abdominal pain, constipation, cramping, diarrhea or vomiting Musculoskeletal Musculoskeletal: Denies arthralgias Integumentary/Breasts Skin/Breast: Denies rash Neurologic Neurologic: Denies paresthesias Physical Exam General General appearance: alert and in no apparent distress Eye Eye exam: Present normal appearance, PERRL and EOMI ENT ENT exam: Present mucous membranes moist and normal external ear exam Expanded ENT Exam External ear exam: Present normal external inspection TM/Canal exam: Bilateral TM: erythema and bulging Nose exam: Absent sinus tenderness Nasal speculum exam: Bilateral: normal Mouth exam: Present normal external inspection; Absent drooling Teeth exam: Present normal inspection Throat exam: Present tonsillar erythema and tonsillomegaly Neck Neck exam: Present normal inspection, full ROM and trachea midline; Absent tenderness, lymphadenopathy or thyromegaly Chest Chest inspection: Present normal inspection and symmetric chest wall rise; Absent tenderness or rash Respiratory Respiratory exam: Present normal lung sounds bilaterally; Absent respiratory distress, wheezes, stridor or accessory muscle use Cardiovascular Cardiovascular exam: Present regular rate, normal rhythm and normal heart sounds Abdominal Exam Abdominal exam: Present soft; Absent distention, tenderness, guarding, rebound or rigidity Extremities Exam Extremities exam: Present normal inspection, full ROM and normal capillary refill; Absent tenderness or calf tenderness Back Exam Back exam: Present normal inspection and full ROM; Absent tenderness Neurological Exam Neurological exam: Present alert and oriented X3 Psychiatric Psychiatric exam: Present normal affect and normal mood Skin Skin exam: Present warm, dry, intact and normal color Lymphatic Lymphatic Findings: no adenopathy Medical Decision Making Medical Records Medical records reviewed: No I reviewed the patient's medical records. Screening: Per USPSTF and CDC recommendations, given the prevalence of disease in our region, it is our hospital?s policy to screen for HIV and viral Hepatitis for all patients aged 18 and over and those with ongoing risk factors. Gigi Inquiry Pt receiving controlled substance: No
[2024-06-08 13:38] VITALS: BP 145/96; PULSE 64; RESP 18; TEMP 36.8; O2SAT 96; BMI 28.3
[2024-06-08 14:20] VITALS: BP 145/96; PULSE 64; RESP 18; TEMP 36.8
== END 2024-06-08 14:25 | disposition home or self-care (01) ==
PROVIDERS: Emergency Provider Nurse Practitioner Family; PCP Internal Medicine
DX: B34.9 Viral infection, unspecified (principal); Z20.822 Contact with and (suspected) exposure to COVID-19; R50.9 Fever, unspecified; R05.9 Cough, unspecified; R11.0 Nausea
CPT/HCPCS: 87635; 99212; G0381

== ENCOUNTER 2024-06-15 21:37 | Emergency (ER) | payer BC, SELFPAY ==
[2024-06-15] VITALS (8 sets, daily range): BP systolic 122–141; BP diastolic 76–86; PULSE 60–89; RESP 12–27; TEMP 36.6; O2SAT 92–97; BMI 28.3
--- NOTE | 2024-06-15 21:48 | XR_ITS ---
PROCEDURE INFORMATION: Exam: XR Chest Exam date and time: 06/15/2024 10:02 PM Age: 24 years old Clinical indication: Pain; Chest pressure; Additional info: Chest pain TECHNIQUE: Imaging protocol: Radiologic exam of the chest. Views: 2 views. Total images: 2 COMPARISON: CT ANGIO ABDOMEN PELVIS 02/19/2024 4:49 PM FINDINGS: Lungs: Unremarkable. No consolidation. No pulmonary vascular congestion or edema. Pleural spaces: Unremarkable. No pleural effusion. No pneumothorax. Heart/Mediastinum: Unremarkable. No cardiomegaly. No mediastinal widening or hilar enlargement. Bones/joints: Unremarkable. IMPRESSION: No radiographically acute cardiopulmonary process.
--- NOTE | 2024-06-15 21:48 | ECG_ITS ---
APPROVED REPORT Exam: Resting ECG HR:65 bpm ECG Measurements Heart Rate 65 AXES OR 138 P 49 QRSd 94 QRS 70 QT 356 T 33 QTc 367 Conclusion SINUS RHYTHM NORMAL ECG Electronically signed by : ÁNGEL LARA, 06/15/2024 23:37:10
[2024-06-15 22:03] LABS: Basophils # 0.1 K/mm3 (0-0.2); Basophils % 1.4 % (0.1-2.0); Eosinophils # 0.1 K/mm3 (0.0-0.4); Hematocrit 47.4 % (42.0-52.0); Hemoglobin 15.9 g/dL (14.1-18.0); Lymphocytes # 2.8 K/mm3 (0.7-4.5); Lymphocytes % 39.7 % (10-50); Mean Corpuscular HGB Conc 33.5 g/dL (31.8-35.4); Mean Corpuscular Volume 89.7 fl (80-94); Mean Platelet Volume 7.2 fl (7.4-10.4); Monocytes # 0.4 K/mm3 (0.1-1.0); Monocytes % 5.6 % (1.7-9.3); Neutrophils # 3.7 K/mm3 (1.8-7.8); Neutrophils % 52.4 % (37.0-80.0); Platelet Count 269 K/mm3 (142-424); Red Blood Count 5.28 M/mm3 (4.60-6.20); Red Cell Distribution Width 13.7 % (11.5-17.5); White Blood Count 7.1 K/mm3 (4.8-10.8)
[2024-06-15 22:08] LABS: Alanine Aminotransferase 47 U/L (12-78); Albumin Level 4.9 g/dl (3.5-5.0); Albumin/Globulin Ratio 1.8 (1.1-1.8); Alkaline Phosphatase 65 U/L (38-126); Anion Gap 17.8 mEq/L (5-15); Aspartate Amino Transferase 53 U/L (17-59); Bilirubin,Total 0.7 mg/dl (0.2-1.3); Blood Urea Nitrogen 11 mg/dl (9-20); Calcium 9.4 mg/dl (8.4-10.2); Carbon Dioxide 21 mmol/L (22.0-30.0); Chloride 104 mmol/L (98-107); Creatinine Clearance Estimated 138 mL/min (50-200); Estimated Glomerular Filt Rate 104 ml/min (>60); GFR (African American) 125 ML/MIN (>60); Globulin 2.7 g/dL (1.3-3.2); Glucose 102 mg/dl (74-100); Potassium 3.8 mmoL/L (3.5-5.1); Sodium 139 mmol/L (136-145); Total Protein,Serum 7.6 g/dl (6.3-8.2)
[2024-06-15 22:14] LABS: D-Dimer 0.67 ug/mL (0.0-0.5)
--- NOTE | 2024-06-15 22:21 | ED_ITS ---
<Statement entered by Shantel Guillermo DO - 06/15/24 23:24> I was consulted by the RICKI, and we discussed the complexity of the problems being addressed. I approved the treatment and management plan for this patient's care in the emergency department, thus performing a substantive portion of the medical decision making. I performed bedside DVT ultrasound, which was negative. Please see procedure note for further documentation. Overall, workup and exam reassuring. I feel the arm pain is likely related to large hematoma. CT PE scan pending given mildly elevated D-dimer and chest pain. Shantel Guillermo DO Discharge Plan Disposition Patient Disposition: Home, Self-Care Condition: Good Chief Complaint: Chest Pain Prescriptions Prescriptions: No Action methocarbamol 750 mg tablet 1,500 mg PO TID 5 Days Qty: 30 0RF alprazolam 0.5 mg tablet 0.5 mg PO DIRECTED Patient Comments: TAKE 1 BY MOUTH THREE TIMES DAILY FOR ANXIETY ATTACKS amitriptyline 100 mg tablet 100 mg PO DIRECTED [id number] [Bromfed DM] 2-30-10 mg/5 mL Syrup 5 ml PO Q6H PRN (Reason: Cough) Qty: 240 0RF ondansetron 4 mg Tablet,Disintegrating 4 mg PO Q8H PRN (Reason: Nausea) Qty: 12 0RF Referrals Follow up/Referrals: Hannah Tidwell ARRT [Primary Care Provider] - See instructions Cameron Carr MD [Staff Physician] - See instructions (chest pain, previous findings of brugada on ECG, no findings on today's ECG) Activity Restrictions/Add. Instructions Additional Instructions/Restrictions: You were evaluated in the ER and are appropriate for discharge at this time. Continue all home medications as previously prescribed. Make an appointment with your primary care doctor for reevaluation in a few days. You have also been referred to cardiology, call their office immediately for follow-up of chest pain and previous abnormal EKG. Return to the ER with new, worsening, or otherwise concerning symptoms. Clinical Impressions Clinical Impression: Chest pain, Hematoma of left forearm Print Language Print Language: Swedish Discharge ED Provider: Shantel Guillermo HPI <JONN Dsouza - Last Filed: 06/15/24 23:21> General Chief Complaint: Chest Pain Stated Complaint: CP Time Seen by Provider: 06/15/24 21:40 Mode of Arrival: Ambulatory Source of Information: Patient Limitations: No Limitations Description of Symptoms (Recalled from ER Triage Doc. by RN): Patient states he has chest pain that started 5 hours ago. Sharp pain 12/13. States it comes and goes. States he is primairly concerned about a left arm injury he has from donating plasma and would like it looked at. History of Present Illness HPI narrative: Patient presents complaining of left-sided chest pain for the last 5 hours. He reports his pain is sharp and constant. He reports some associated shortness of breath. Denies any cough or fever. He denies any hemoptysis. He does report that he donated plasma 6 days ago and has had bruising, swelling and pain to the left forearm since that time. He reports a history of anxiety and hypertension. He does take metoprolol daily. complaint: chest pain Onset (ago): hour(s) Time: 17:00 Duration: constant Activity at onset: during rest Pain location: left chest Severity: moderate Quality: sharp Pain radiation: none Relieving factors: nothing Exacerbating factors: nothing Context: other (Donated plasma, arm pain and swelling) Risk Factors for CAD: Hypertension and Family Hx of CAD (uncles, grandparents >50 yoa) Treatments prior to or on arrival for Cardiac Chest Pain: none Related Data Home Medications ?Medication ?Instructions ?Recorded ?Confirmed alprazolam 0.5 mg tablet 0.5 mg PO DIRECTED 06/08/24 06/08/24 amitriptyline 100 mg tablet 100 mg PO DIRECTED 06/08/24 06/08/24 Previous Rx's ?Medication ?Instructions ?Recorded methocarbamol 750 mg tablet 1,500 mg (2 x 750 mg) PO TID 5 02/19/24 days #30 tabs ahrazrhqfntkotl-ktcvkvezsvicuat-NH 5 ml PO Q6H PRN Cough #240 mL 06/08/24 2 mg-30 mg-10 mg/5 mL oral syrup (Bromfed DM) ondansetron 4 mg disintegrating 4 mg PO Q8H PRN Nausea #12 tabs 06/08/24 tablet Allergies Allergy/AdvReac Type Severity Reaction Status Date / Time No Known Allergies Allergy Verified 02/19/24 16:17 PFS <JONN Dsouza - Last Filed: 06/15/24 23:21> [facility] Disclaimer: The information contained in this section may have been updated after the patient was seen, as this information can be updated by other users. Social History (Updated 02/19/24 @ 17:42 by Cristino Carey MD) Smoking Status: Never smoker alcohol intake: never current occupational status: employed Travel in the last 8 weeks: None <JONN Dsouza - Last Filed: 06/15/24 23:21> ROS Obtained: Yes Systems reviewed as appropriate & no additional complaints except as documented Physical Exam <JONN Dsouza - Last Filed: 06/15/24 23:21> General General appearance: alert and in no apparent distress Head Head exam: atraumatic and normocephalic Eye Eye exam: Present normal appearance and EOMI Chest Chest inspection: Present symmetric chest wall rise Respiratory Respiratory exam: Present normal lung sounds bilaterally; Absent wheezes or stridor Cardiovascular Cardiovascular exam: Present regular rate and normal rhythm; Absent systolic murmur Neurological Exam Neurological exam: Present alert and oriented X3 Psychiatric Psychiatric exam: Present normal affect and normal mood Skin Skin exam: Present warm, dry and intact HEART Score <JONN Dsouza - Last Filed: 06/15/24 23:21> HEART Score HEART Score assessment performed?: Yes History (anamnesis): Slightly suspicious ECG: Normal Age: <45 years Risk factors: 1-2 risk factors Troponin: </= normal limit HEART Score: 1 <Shantel Guillermo DO - Last Filed: 06/15/24 23:24> HEART Score HEART Score assessment performed?: Yes History (anamnesis): Slightly suspicious ECG: Normal Age: <45 years Risk factors: No known risk factors Troponin: </= normal limit HEART Score: 0 <Najma Patel MD - Last Filed: 06/16/24 01:31> HEART Score HEART Score: 0 Procedures <Shantel Guillermo DO - Last Filed: 06/15/24 23:24> Limited Ultrasound Findings:: Limited DVT ultrasound Indication: Limited compression ultrasonography of the left upper extremity was performed to evaluate for non-compressibility of the deep veins in the patient. The ultrasound was performed with the following indications, as noted in the H&P: Left arm pain and swelling, chest pain Identified structures: Left [Ulnar vein, radial vein, cephalic vein, basilic vein, axillary vein.] Findings: Upper extremity: Left UV: Good compressibility Left RV: Good compressibility Left Cephalic vein: Good compressibility Left Basilic vein: Good compressibility Left Axillary vein: Good compressibility Impression: Normal/negative left upper extremity DVT ultrasound Images were saved to permanent archive The study was technically adequate [id number] This study was performed by me, and I personally interpreted all images/videos. Based on my clinical judgement, these images were adequate and did not necessitate further imaging. Critical Care <JONN Dsouza - Last Filed: 06/15/24 23:21> Critical Care Time Critical Care Time: No Medical Decision Making <JONN Dsouza - Last Filed: 06/15/24 23:21> Gigi Inquiry Pt receiving controlled substance: No Gigi was queried for this patient: No Vital Signs Vital Signs: 06/15/24 21:38 06/15/24 21:44 06/15/24 21:55 Temperature 97.9 F Temperature Source Oral Pulse Rate 88 74 Pulse Rate [Right Radial] 89 Respiratory Rate 18 27 H Blood Pressure Blood Pressure [Right Arm] 141/86 H Blood Pressure Mean Blood Pressure Mean [Right Arm] 104 Blood Pressure Source [Right Arm] Automatic Cuff 02 Sat by Pulse Oximetry 97 95 Oxygen Delivery Method Room Air 06/15/24 22:00 06/15/24 22:00 06/15/24 22:16 Temperature Temperature Source Pulse Rate 60 61 67 Pulse Rate [Right Radial] Respiratory Rate 23 22 Blood Pressure 126/76 126/76 Blood Pressure [Right Arm] Blood Pressure Mean 92 Blood Pressure Mean [Right Arm] Blood Pressure Source [Right Arm] 02 Sat by Pulse Oximetry 92 L 95 Oxygen Delivery Method 06/15/24 22:30 06/15/24 23:00 06/15/24 23:30 Temperature Temperature Source Pulse Rate 71 72 62 Pulse Rate [Right Radial] Respiratory Rate 12 24 24 Blood Pressure 125/86 131/81 122/81 Blood Pressure [Right Arm] Blood Pressure Mean 98 98 91 Blood Pressure Mean [Right Arm] Blood Pressure Source [Right Arm] 02 Sat by Pulse Oximetry 94 L 94 L 94 L Oxygen Delivery Method Lab Data Labs: Lab Results 06/15/24 21:41: WBC 7.1, RBC 5.28, Hgb 15.9, Hct 47.4, MCV 89.7, MCH 30.0, MCHC 33.5, RDW 13.7, Plt Count 269, MPV 7.2 L, Neut % (Auto) 52.4, Lymph % (Auto) 39.7, [place] % (Auto) 5.6, Eos % (Auto) 1.0, Baso % (Auto) 1.4, Neut # (Auto) 3.7, Lymph # (Auto) 2.8, [place] # (Auto) 0.4, Eos # (Auto) 0.1, Baso # (Auto) 0.1, D- Dimer 0.67 H, Sodium 139, Potassium 3.8, Chloride 104, Carbon Dioxide 21 L, A nion Gap 17.8 H, BUN 11, Creatinine 0.90, Estimated Creat Clear 138, Estimated GFR 104, Est GFR ( Amer) 125, Glucose 102 H, Calcium 9.4, Total Bilirubin 0.7, AST 53, ALT 47, Alkaline Phosphatase 65, Troponin I < 0.01, Total Protein 7.6, Albumin 4.9, Globulin 2.7, Albumin/Globulin Ratio 1.8 06/16/24 00:48: Troponin I < 0.01 06/15/24 21:41 06/15/24 21:41 Response Orders (Tests/Meds): ED MEDICATIONS Discontinued Medications Generic Name Dose Route Start Last Admin Trade Name Simon PRN Reason Stop Dose Admin Acetaminophen 1,000 mg 06/16/24 00:29 06/16/24 00:32 Acetaminophen 500mg Tab PO 06/16/24 00:30 1,000 mg ONCE ONE Administration Iopamidol 70 ml 06/16/24 00:18 06/16/24 00:19 Iopamidol-370 (76%);100ml Bottle IV 06/16/24 00:19 70 ml ONCE ONE Administration Ketorolac Tromethamine 15 mg 06/15/24 22:20 06/15/24 22:35 Ketorolac 30mg/Ml Vial IV 06/15/24 22:21 15 mg ONCE ONE Administration Sodium Chloride 50 ml 06/16/24 00:18 06/16/24 00:19 0.9 % Sodium Chloride 50 Ml Vial IV 06/16/24 00:19 50 ml ONCE ONE Administration Sodium Chloride 10 ml 06/16/24 00:18 06/16/24 00:19 Sodium Chloride 0.9% 10ml Syr (Rad Only) IV 06/16/24 00:19 10 ml ONCE ONE Administration ORDERS Category Date Time Status CT angio chest PE protocol Stat Cat Scan 06/15/24 23:06 Completed POCUS Point of Care (ER Only) Stat Exams 06/15/24 22:29 Taken XR chest 2V Stat Exams 06/15/24 21:48 Completed Complete Blood Count Auto Diff Stat Lab 06/15/24 21:41 Completed Comprehensive Metabolic Panel Stat Lab 06/15/24 21:41 Completed D-Dimer Stat Lab 06/15/24 21:41 Completed Troponin I Q3H Lab 06/15/24 21:41 Completed Troponin I Q3H Lab 06/16/24 00:48 Completed Troponin I Q3H Lab 06/16/24 04:00 Ordered Radiology Data #1: Image(s): Chest (CXR IMPRESSION: No radiographically acute cardiopulmonary process. ) MDM Narrative Medical Decision Narrative: In summary patient is a 24-year-old male who presents the emergency department for evaluation of chest pain. Patient is hemodynamically upon arrival, afebrile. Left forearm edema, ecchymosis, tenderness. Differential diagnosis includes ACS, pulmonary embolism, pleurisy. Initial workup will be conducted with CBC, CMP, D dimer, chest x-ray. Given toradol for pain. Initial workup reviewed by me reveals positive d dimer, negative POCUS for upper extremity DVT. Other labs unremarkable. Upon repeat evaluation no change in symptoms. Patient checked out to Dr. Patel pending CTA PE protocol. <Shantel Guillermo, DO - Last Filed: 06/15/24 23:24> Vital Signs Vital Signs: 06/15/24 21:38 06/15/24 21:44 06/15/24 21:55 Temperature 97.9 F Temperature Source Oral Pulse Rate 88 74 Pulse Rate [Right Radial] 89 Respiratory Rate 18 27 H Blood Pressure Blood Pressure [Right Arm] 141/86 H Blood Pressure Mean Blood Pressure Mean [Right Arm] 104 Blood Pressure Source [Right Arm] Automatic Cuff 02 Sat by Pulse Oximetry 97 95 Oxygen Delivery Method Room Air 06/15/24 22:00 06/15/24 22:00 06/15/24 22:16 Temperature Temperature Source Pulse Rate 60 61 67 Pulse Rate [Right Radial] Respiratory Rate 23 22 Blood Pressure 126/76 126/76 Blood Pressure [Right Arm] Blood Pressure Mean 92 Blood Pressure Mean [Right Arm] Blood Pressure Source [Right Arm] 02 Sat by Pulse Oximetry 92 L 95 Oxygen Delivery Method 06/15/24 22:30 06/15/24 23:00 06/15/24 23:30 Temperature Temperature Source Pulse Rate 71 72 62 Pulse Rate [Right Radial] Respiratory Rate 12 24 24 Blood Pressure 125/86 131/81 122/81 Blood Pressure [Right Arm] Blood Pressure Mean 98 98 91 Blood Pressure Mean [Right Arm] Blood Pressure Source [Right Arm] 02 Sat by Pulse Oximetry 94 L 94 L 94 L Oxygen Delivery Method Lab Data Labs: Lab Results 06/15/24 21:41: WBC 7.1, RBC 5.28, Hgb 15.9, Hct 47.4, MCV 89.7, MCH 30.0, MCHC 33.5, RDW 13.7, Plt Count 269, MPV 7.2 L, Neut % (Auto) 52.4, Lymph % (Auto) 39.7, [place] % (Auto) 5.6, Eos % (Auto) 1.0, Baso % (Auto) 1.4, Neut # (Auto) 3.7, Lymph # (Auto) 2.8, [place] # (Auto) 0.4, Eos # (Auto) 0.1, Baso # (Auto) 0.1, D- Dimer 0.67 H, Sodium 139, Potassium 3.8, Chloride 104, Carbon Dioxide 21 L, A nion Gap 17.8 H, BUN 11, Creatinine 0.90, Estimated Creat Clear 138, Estimated GFR 104, Est GFR ( Amer) 125, Glucose 102 H, Calcium 9.4, Total Bilirubin 0.7, AST 53, ALT 47, Alkaline Phosphatase 65, Troponin I < 0.01, Total Protein 7.6, Albumin 4.9, Globulin 2.7, Albumin/Globulin Ratio 1.8 06/16/24 00:48: Troponin I < 0.01 Response Orders (Tests/Meds): ED MEDICATIONS Discontinued Medications Generic Name Dose Route Start Last Admin Trade Name Freq PRN Reason Stop Dose Admin Acetaminophen 1,000 mg 06/16/24 00:29 06/16/24 00:32 Acetaminophen 500mg Tab PO 06/16/24 00:30 1,000 mg ONCE ONE Administration Iopamidol 70 ml 06/16/24 00:18 06/16/24 00:19 Iopamidol-370 (76%);100ml Bottle IV 06/16/24 00:19 70 ml ONCE ONE Administration Ketorolac Tromethamine 15 mg 06/15/24 22:20 06/15/24 22:35 Ketorolac 30mg/Ml Vial IV 06/15/24 22:21 15 mg ONCE ONE Administration Sodium Chloride 50 ml 06/16/24 00:18 06/16/24 00:19 0.9 % Sodium Chloride 50 Ml Vial IV 06/16/24 00:19 50 ml ONCE ONE Administration Sodium Chloride 10 ml 06/16/24 00:18 06/16/24 00:19 Sodium Chloride 0.9% 10ml Syr (Rad Only) IV 06/16/24 00:19 10 ml ONCE ONE Administration ORDERS Category Date Time Status CT angio chest PE protocol Stat Cat Scan 06/15/24 23:06 Completed POCUS Point of Care (ER Only) Stat Exams 06/15/24 22:29 Taken XR chest 2V Stat Exams 06/15/24 21:48 Completed Complete Blood Count Auto Diff Stat Lab 06/15/24 21:41 Completed Comprehensive Metabolic Panel Stat Lab 06/15/24 21:41 Completed D-Dimer Stat Lab 06/15/24 21:41 Completed Troponin I Q3H Lab 06/15/24 21:41 Completed Troponin I Q3H Lab 06/16/24 00:48 Completed Troponin I Q3H Lab 06/16/24 04:00 Ordered ECG Data Tracing #1: Attestation: I reviewed this ECG and interpreted as documented below: ECG Narrative: Normal sinus rhythm with a ventricular rate of [address] changes concerning for ischemia. Normal axis and intervals ECG initial impression date: 06/15/24 ECG initial impression time: 21:37 <Najma Patel MD - Last Filed: 06/16/24 01:31> Vital Signs Vital Signs: 06/15/24 21:38 06/15/24 21:44 06/15/24 21:55 Temperature 97.9 F Temperature Source Oral Pulse Rate 88 74 Pulse Rate [Right Radial] 89 Respiratory Rate 18 27 H Blood Pressure Blood Pressure [Right Arm] 141/86 H Blood Pressure Mean Blood Pressure Mean [Right Arm] 104 Blood Pressure Source [Right Arm] Automatic Cuff 02 Sat by Pulse Oximetry 97 95 Oxygen Delivery Method Room Air 06/15/24 22:00 06/15/24 22:00 06/15/24 22:16 Temperature Temperature Source Pulse Rate 60 61 67 Pulse Rate [Right Radial] Respiratory Rate 23 22 Blood Pressure 126/76 126/76 Blood Pressure [Right Arm] Blood Pressure Mean 92 Blood Pressure Mean [Right Arm] Blood Pressure Source [Right Arm] 02 Sat by Pulse Oximetry 92 L 95 Oxygen Delivery Method 06/15/24 22:30 06/15/24 23:00 06/15/24 23:30 Temperature Temperature Source Pulse Rate 71 72 62 Pulse Rate [Right Radial] Respiratory Rate 12 24 24 Blood Pressure 125/86 131/81 122/81 Blood Pressure [Right Arm] Blood Pressure Mean 98 98 91 Blood Pressure Mean [Right Arm] Blood Pressure Source [Right Arm] 02 Sat by Pulse Oximetry 94 L 94 L 94 L Oxygen Delivery Method Lab Data Labs: Lab Results 06/15/24 21:41: WBC 7.1, RBC 5.28, Hgb 15.9, Hct 47.4, MCV 89.7, MCH 30.0, MCHC 33.5, RDW 13.7, Plt Count 269, MPV 7.2 L, Neut % (Auto) 52.4, Lymph % (Auto) 39.7, [place] % (Auto) 5.6, Eos % (Auto) 1.0, Baso % (Auto) 1.4, Neut # (Auto) 3.7, Lymph # (Auto) 2.8, [place] # (Auto) 0.4, Eos # (Auto) 0.1, Baso # (Auto) 0.1, D- Dimer 0.67 H, Sodium 139, Potassium 3.8, Chloride 104, Carbon Dioxide 21 L, A nion Gap 17.8 H, BUN 11, Creatinine 0.90, Estimated Creat Clear 138, Estimated GFR 104, Est GFR ( Amer) 125, Glucose 102 H, Calcium 9.4, Total Bilirubin 0.7, AST 53, ALT 47, Alkaline Phosphatase 65, Troponin I < 0.01, Total Protein 7.6, Albumin 4.9, Globulin 2.7, Albumin/Globulin Ratio 1.8 06/16/24 00:48: Troponin I < 0.01 Response Orders (Tests/Meds): ED MEDICATIONS Discontinued Medications Generic Name Dose Route Start Last Admin Trade Name Freq PRN Reason Stop Dose Admin Acetaminophen 1,000 mg 06/16/24 00:29 06/16/24 00:32 Acetaminophen 500mg Tab PO 06/16/24 00:30 1,000 mg ONCE ONE Administration Iopamidol 70 ml 06/16/24 00:18 06/16/24 00:19 Iopamidol-370 (76%);100ml Bottle IV 06/16/24 00:19 70 ml ONCE ONE Administration Ketorolac Tromethamine 15 mg 06/15/24 22:20 06/15/24 22:35 Ketorolac 30mg/Ml Vial IV 06/15/24 22:21 15 mg ONCE ONE Administration Sodium Chloride 50 ml 06/16/24 00:18 06/16/24 00:19 0.9 % Sodium Chloride 50 Ml Vial IV 06/16/24 00:19 50 ml ONCE ONE Administration Sodium Chloride 10 ml 06/16/24 00:18 06/16/24 00:19 Sodium Chloride 0.9% 10ml Syr (Rad Only) IV 06/16/24 00:19 10 ml ONCE ONE Administration ORDERS Category Date Time Status CT angio chest PE protocol Stat Cat Scan 06/15/24 23:06 Completed POCUS Point of Care (ER Only) Stat Exams 06/15/24 22:29 Taken XR chest 2V Stat Exams 06/15/24 21:48 Completed Complete Blood Count Auto Diff Stat Lab 06/15/24 21:41 Completed Comprehensive Metabolic Panel Stat Lab 06/15/24 21:41 Completed D-Dimer Stat Lab 06/15/24 21:41 Completed Troponin I Q3H Lab 06/15/24 21:41 Completed Troponin I Q3H Lab 06/16/24 00:48 Completed Troponin I Q3H Lab 06/16/24 04:00 Ordered MDM Narrative Medical Decision Narrative: In summary patient is a 24-year-old male who presents the emergency department for evaluation of chest pain. Patient is hemodynamically upon arrival, afebrile. Left forearm edema, ecchymosis, tenderness. Differential diagnosis includes ACS, pulmonary embolism, pleurisy. Initial workup will be conducted with CBC, CMP, D dimer, chest x-ray. Given toradol for pain. Initial workup reviewed by me reveals positive d dimer, negative POCUS for upper extremity DVT. Other labs unremarkable. Upon repeat evaluation no change in symptoms. Patient checked out to Dr. Patel pending CTA PE protocol. Patel: Upon my assumption of care patient is stable, he does have mild complaints of pain and received Tylenol. I agree with the assessment and plan from the primary providers. I reviewed labs which are overall reassuring including undetectable initial troponin, elevated D-dimer indicated need for CTA PE given patient's symptoms. Patient was placed into ED observation at 2330 for serial troponins to rule out evolving [place] and preclude unnecessary admission. 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 CTA PE personally interpreted does not demonstrate acute intrathoracic abnormality, no parenchymal abnormality, no PE appreciated. See radiology read for final interpretation. Repeat ECG was ordered and personally interpreted demonstrating sinus bradycardia, rate 58, normal axis, normal TX and QTc. Patient reported a history of Brugada and though I can see the findings concerning for Brugada on previous ECGs from this summer, these are not present on either of his ECGs performed today. He has not had syncope or lightheadedness and I believe his questionable Brugada findings are appropriate for outpatient follow-up. Repeat troponin also undetectably low at less than 0.01. Patient is appropriate for discharge at this time. He has had no concerning changes on his vitals, is resting comfortably, pain is resolved, thorough workup is very reassuring. I placed a referral back to cardiology again for recurrent chest pain as well as to reevaluate patient's abnormalities appreciated on old ECGs. Patient was given instructions on symptomatic monitoring and management, follow up instructions, and return precautions for the emergency department. Patient indicated understanding and was discharged in stable condition. Total time in ED observation: 2 hours
[2024-06-15 22:23] LABS: Troponin I < 0.01 ng/ml (0.00-0.034)
[2024-06-15] MEDS: KETOROLAC 30MG/ML VIAL 15 MG IV (22:35)
--- NOTE | 2024-06-15 23:06 | CT_ITS ---
PROCEDURE INFORMATION: Exam: CTA Chest With Contrast Exam date and time: 06/16/2024 12:18 AM Age: 24 years old Clinical indication: Other: Chest pain; Additional info: Cp, dimer positive TECHNIQUE: Imaging protocol: Computed tomographic angiography of the chest with contrast. Exam focused on the arteries. 3D rendering (Not supervised by radiologist): MIP and/or 3D reconstructed images were created by the technologist. Total images: 823 Radiation optimization: All CT scans at this facility use at least one of these dose optimization techniques: automated exposure control; mA and/or kV adjustment per patient size (includes targeted exams where dose is matched to clinical indication); or iterative reconstruction. Contrast material: ISO 370; Contrast volume: 70 ml; Contrast route: INTRAVENOUS (IV); COMPARISON: CR XR CHEST 2V 06/15/2024 10:02 PM FINDINGS: Pulmonary arteries: Adequate contrast opacification of the pulmonary arteries. Main pulmonary artery is normal in caliber. No acute pulmonary emboli. Aorta: No thoracic aortic aneurysm or dissection. Cardiac pulsation artifact in the ascending aorta. Thymus: Mild residual thymus. Lungs: The trachea and main bronchi are patent. The lungs are clear and well expanded. Pleural spaces: Unremarkable. No pneumothorax. No pleural effusion. Heart: Normal heart size. No pericardial effusion. Coronary arteries: No coronary artery calcifications. Lymph nodes: No mediastinal or hilar lymphadenopathy. Diaphragm: Small hiatal hernia. Intraperitoneal space: No acute process in the upper abdomen. Bones/joints: Unremarkable. No acute fracture. Soft tissues: Unremarkable. IMPRESSION: 1. No acute intrathoracic process. Specifically, no acute pulmonary emboli. 2. Clear lungs.
[2024-06-16] MEDS: 0.9 % SODIUM CHLORIDE 50 ML VIAL IV (00:19)
[2024-06-16] MEDS: IOPAMIDOL-370 (76%);100ML BOTTLE 70 ML IV (00:19)
[2024-06-16] MEDS: SODIUM CHLORIDE 0.9% 10ML SYR (RAD ONLY) 10 ML IV (00:19)
[2024-06-16] MEDS: ACETAMINOPHEN 500MG TAB 1000 MG PO (00:32)
[2024-06-16 01:16] LABS: Troponin I < 0.01 ng/ml (0.00-0.034)
[2024-06-16 01:41] VITALS: BP 135/65; PULSE 79; RESP 16; TEMP 36.7; O2SAT 98
== END 2024-06-16 01:43 | disposition home or self-care (01) ==
PROVIDERS: Physician Assistant; Emergency Provider Emergency Medicine
DX: R07.9 Chest pain, unspecified (principal); S50.12XA Contusion of left forearm, initial encounter
CPT/HCPCS: 71046; 71275; 80053; 84484; 85025; 85378; 93005; 96374; 99285; J1885; Q9967

== ENCOUNTER 2024-07-15 12:11 | Emergency (ER) | payer BC, SELFPAY ==
[2024-07-15 13:00] VITALS: BP 122/69; PULSE 68; RESP 20; TEMP 37; O2SAT 95; BMI 25.9
--- NOTE | 2024-07-15 13:02 | EXP.UTC ---
Discharge Plan Disposition Patient Disposition: Home, Self-Care Condition: Good Prescriptions Prescriptions: New azithromycin [Zithromax] 250 mg tablet 250 mg PO UD DOSE PK Qty: 6 0RF Rx Instructions: Take two (2) tablets today, then one (1) tablet days #2 thru #5 methylprednisolone 4 mg Tablets,Dose Pack 4 mg PO DIRECTED 6 Days Qty: 21 0RF Rx Instructions: Take 1 pack as directed for 6 days [id number]-[id number] [Bromfed DM] 2-30-10 mg/5 mL Syrup 5 ml PO Q6H PRN (Reason: Cough) Qty: 240 0RF No Action omeprazole 40 mg capsule,delayed release(DR/EC) 40 mg PO AM Patient Comments: TAKE 1 CAPSULE BY MOUTH IN THE MORNING alprazolam 0.5 mg tablet 0.5 mg PO TIDP PRN (Reason: Anxiety) Patient Comments: TAKE 1 BY MOUTH THREE TIMES DAILY FOR ANXIETY ATTACKS metoprolol succinate 25 mg tablet extended release 24 hr 25 mg PO PM Patient Comments: TAKE 1 TABLET BY MOUTH EVERY DAY IN THE EVENING amitriptyline 100 mg tablet 100 mg PO HS Patient Comments: TAKE 1 TABLET BY MOUTH EVERYDAY AT BEDTIME Referrals Follow up/Referrals: Provider,Referral, MD [Primary Care Provider] - See instructions Activity Restrictions/Add. Instructions Additional Instructions/Restrictions: Drink plenty of fluids. Take tylenol or ibuprofen for pain or fever. Take the medications as directed. Follow up with your regular doctor. GO TO THE ER FOR ANY WORSENING SYMPTOMS Clinical Impressions Clinical Impression: Bronchitis, Pharyngitis Instructions Patient Instructions: DI for Pharyngitis/Tonsillopharyngitis -- Adult, DI for Acute Bronchitis Print Language Print Language: Tajik Discharge ED Provider: Naun Kendrick [facility] [place] General Stated complaint: chest congestion sore throat lung pain Time Seen by Provider: 07/15/24 12:59 Related Data Home Medications ?Medication ?Instructions ?Recorded ?Confirmed alprazolam 0.5 mg tablet 0.5 mg PO TIDP PRN Anxiety 07/15/24 07/15/24 amitriptyline 100 mg tablet 100 mg PO HS 07/15/24 07/15/24 metoprolol succinate 25 mg 25 mg PO PM 07/15/24 07/15/24 tablet,extended release 24 hr omeprazole 40 mg capsule,delayed 40 mg PO AM 07/15/24 07/15/24 release Previous Rx's ?Medication ?Instructions ?Recorded azithromycin 250 mg tablet 250 mg PO UD DOSE PK #6 tabs 07/15/24 (Zithromax) [id number]-[id number]-GE 5 ml PO Q6H PRN Cough #240 mL 07/15/24 2 mg-30 mg-10 mg/5 mL oral syrup (Bromfed DM) methylprednisolone 4 mg tablets in 4 mg PO DIRECTED 6 days #21 tabs 07/15/24 a dose pack Allergies Allergy/AdvReac Type Severity Reaction Status Date / Time No Known Allergies Allergy Verified 02/19/24 16:17 [facility] Disclaimer: The information contained in this section may have been updated after the patient was seen, as this information can be updated by other users. Social History (Updated 02/19/24 @ 17:42 by Cristino Carey MD) Smoking Status: Never smoker alcohol intake: never current occupational status: employed Travel in the last 8 weeks: None ROS Obtained: Yes All systems reviewed & no additional complaints except as documented Constitutional Constitutional: Reports chills and Reports fever(s) Eyes Eyes: Denies eye discharge ENT Ears, Nose, Mouth, and Throat: Reports as per HPI Cardiovascular Cardiovascular: Denies chest pain Respiratory Respiratory: Denies chest congestion and Reports cough Gastrointestinal Gastrointestingal: Reports nausea; Denies abdominal pain, constipation, cramping, diarrhea or vomiting Musculoskeletal Musculoskeletal: Denies arthralgias Integumentary/Breasts Skin/Breast: Denies rash Neurologic Neurologic: Denies paresthesias Physical Exam General General appearance: alert and in no apparent distress Head Head exam: atraumatic, normocephalic and normal inspection Eye Eye exam: Present normal appearance, PERRL and EOMI ENT ENT exam: Present mucous membranes moist and normal external ear exam Expanded ENT Exam TM/Canal exam: Bilateral TM: erythema and bulging Nose exam: Absent sinus tenderness Mouth exam: Present normal external inspection; Absent drooling Teeth exam: Present normal inspection Throat exam: Present tonsillar erythema, tonsillomegaly and tonsillar exudate Neck Neck exam: Present normal inspection, full ROM and trachea midline; Absent tenderness, meningismus or lymphadenopathy Chest Chest inspection: Present normal inspection and symmetric chest wall rise; Absent tenderness Respiratory Respiratory exam: Present normal lung sounds bilaterally; Absent respiratory distress, wheezes, stridor or accessory muscle use Cardiovascular Cardiovascular exam: Present regular rate and normal rhythm; Absent systolic murmur or diastolic murmur Abdominal Exam Abdominal exam: Present soft and normal bowel sounds; Absent distention, tenderness, guarding, rebound or rigidity Extremities Exam Extremities exam: Present normal inspection and normal capillary refill; Absent calf tenderness Back Exam Back exam: Present normal inspection and full ROM; Absent tenderness, CVA tenderness (R) or CVA tenderness (L) Neurological Exam Neurological exam: Present alert, oriented X3 and CN II-XII intact Psychiatric Psychiatric exam: Present normal affect and normal mood Skin Skin exam: Present warm, dry, intact and normal color Medical Decision Making Medical Records Medical records reviewed: No I reviewed the patient's medical records. Screening: Per USPSTF and CDC recommendations, given the prevalence of disease in our region, it is our hospital?s policy to screen for HIV and viral Hepatitis for all patients aged 18 and over and those with ongoing risk factors. Gigi Inquiry Pt receiving controlled substance: No Lab Data Lab results reviewed: Yes I reviewed the patient's lab results.
[2024-07-15 13:16] LABS: UTC Strep Screen (Rapid) Negative (Negative)
[2024-07-15 13:17] LABS: UTC Influenza A Antigen Negative (Negative); UTC Influenza B Antigen Negative (Negative)
[2024-07-15 13:50] VITALS: BP 122/69; PULSE 68; RESP 20; TEMP 37; O2SAT 95
[2024-07-15 13:56] LABS: Coronavirus 19, PCR Not Detected (NotDetected); Influenza A, PCR Not Detected (NotDetected); Influenza B, PCR Not Detected (NotDetected)
== END 2024-07-15 13:52 | disposition home or self-care (01) ==
PROVIDERS: Emergency Provider Nurse Practitioner Family
DX: J20.9 Acute bronchitis, unspecified (principal); J02.9 Acute pharyngitis, unspecified
CPT/HCPCS: 87636; 87804; 87880; 99213; G0381

== ENCOUNTER 2025-01-22 13:24 | Outpatient (CLI) | payer MEDICAID, SELFPAY ==
[2025-01-22 15:36] LABS: Coronavirus 19, PCR Not Detected (NotDetected); Human Rhinovirus Not Detected (NotDetected); Influenza A, PCR Not Detected (NotDetected); Influenza B, PCR Not Detected (NotDetected); Respiratory Syncytial Virus Not Detected (NotDetected)
== END 2025-01-22 23:59 | disposition home or self-care (01) ==
LOC: LAB.DROPOF 01-23 13:52
PROVIDERS: PCP Student in an Organized Health Care Education/Training Program; Visit Provider Student in an Organized Health Care Education/Training Program
DX: J02.9 Acute pharyngitis, unspecified (principal); R05.9 Cough, unspecified
CPT/HCPCS: 87631